=== PATIENT | female | born 1965 | race Caucasian/White ===

== ENCOUNTER → 2018-05-03 11:25 | Outpatient (CLI) | payer OTHER, SELFPAY ==
--- NOTE | 2018-05-03 | DI.MRI.S_ITS ---
PROCEDURE: MR ANKLE LT WO CON INDICATIONS: ACHILLES TENDONITIS OF LEFT LEG TECHNIQUE: Noncontrast sagittal T1 spin echo and T2 fast spin echo with fat saturation, axial proton density fast spin echo and T2 fast spin echo with fat saturation, coronal T1 spin echo and T2 fast spin echo with fat saturation through the ankle/hindfoot. COMPARISON: None. FINDINGS: Image quality: Excellent. Bones and joints: No bone marrow contusions or fractures. No hindfoot coalitions. No osteochondral injuries of the talar dome. No pathologic joint effusions. Synovial/ganglion cyst adjacent to and possibly arising from the talonavicular joint image 14 series 7. This measures 10 x 2 mm on sagittal image 14 series 7. Medial structures: The posterior tibialis, flexor digitorum longus, and flexor hallucis longus tendons are intact. There is mild fluid adjacent to the posterior tibialis tendon suggestive of low-grade tenosynovitis. The posterior tibial neurovascular bundle appears normal within the tarsal tunnel, without extrinsic mass effect. The deep layer (anterior and posterior tibiotalar ligaments) and superficial layer (tibionavicular, tibiospring, and tibiocalcaneal ligaments) of the deltoid ligament appear normal. The spring ligament components (superomedial calcaneonavicular, medioplantar oblique calcaneonavicular, and inferoplantar longitudinal ligaments) are intact. Lateral structures: The anterior talofibular, calcaneofibular, and posterior talofibular ligaments appear intact. More superiorly, the anterior and posterior tibiofibular ligaments appear intact, as is the intermalleolar ligament. The tibiofibular syndesmosis is normal in width at 2 mm or less. There is mild fluid adjacent to the peroneus longus. Longitudinal split tear of the peroneus brevis is seen, for example image 27 series 5. Adjacent bony peroneal tubercle and retrotrochlear prominence are normal in size. The sinus tarsi demonstrates normal fatty signal, without edema, fibrosis, or cyst formation. Visualized sinus tarsi components (cervical ligament, interosseous talocalcaneal ligament, roots of the inferior extensor retinaculum) appear normal. The calcaneonavicular and calcaneocuboid components of the bifurcate ligament appear intact. The dorsal calcaneocuboid ligament appears intact. Anterior structures: The tibialis anterior, extensor hallucis longus, and extensor digitorum longus tendons appear intact. The dorsal talonavicular ligament appears intact. Posterior and plantar structures: Achilles tendon is mildly thickened with minimal internal signal change suggesting chronic low-grade tendinopathy. There is medial band plantar fasciitis with associated plantar calcaneal spur. IMPRESSION: Mild, probably chronic, Achilles tendinopathy. No complete rupture. This involves approximately the distal-most 7 cm of the Achilles tendon Small longitudinal split tear of the peroneus brevis tendon. Mild posterior tibialis and peroneus longus tenosynovitis. Ganglion cyst along the dorsal aspect of the talonavicular joint. Medial band plantar fasciitis Dictated by: Nathanael Kim M.D. on 05/03/2018 at 13:09 Approved by: Nathanael Kim M.D. on 05/03/2018 at 13:27
== END ==
PROVIDERS: Visit Provider Podiatrist
DX: M76.62 Achilles tendinitis, left leg (principal); S96.812A Strain of other specified muscles and tendons at ankle and foot level, left foot, initial encounter; M65.862 Other synovitis and tenosynovitis, left lower leg; M67.472 Ganglion, left ankle and foot; M72.2 Plantar fascial fibromatosis
CPT/HCPCS: 73721

== ENCOUNTER 2018-06-01 12:27 | Day surgery (SDC) | payer OTHER, SELFPAY ==
[2018-05-31 10:36] VITALS: BMI 43.6
[2018-06-01] VITALS (8 sets, daily range): BP systolic 130–164; BP diastolic 46–90; PULSE 60–69; RESP 8–19; TEMP 35.9–36.3; O2SAT 96–100; BMI 43.6
[2018-06-01] MEDS: MIDAZOLAM 2 MG/2 ML VIAL IV (14:40)
[2018-06-01] MEDS: LACTATED RINGERS 1,000 ML 42 ML IV ×2 (14:48→16:54)
--- NOTE | 2018-06-01 14:49 | PM.PREOP ---
Pre-operative Note Interval Note Pre-op Check: Yes History & Physical Reviewed by Physician Changes: No
--- NOTE | 2018-06-01 14:51 | SUR.PREOP ---
Block start time [1440] . Monitoring initiated and maintained throughout procedure. Oxygen and medications given per anesthesiologist instructions. Patient remained stable throughout procedure, no adverse reactions noted. Block end time [1452].
--- NOTE | 2018-06-01 14:52 | PM.OP.1 ---
Operative Date/Time/Diagnoses Date of procedure: 06/01/18 Time of procedure: 14:52 Pre-op diagnosis: Left Achilles tendonitis, tendinosis, heel spur, possible peroneal tear Post-op diagnosis: same Procedure & Clinicians Surgeon: Aline Zepeda Click Yes if Unassisted: Yes Anesthesia Type: General and Peripheral nerve block Operative Notes Closure Type: primary Specimen(s): none sent Implants & Drains: Arthrex Speed Bridge anchor system, Ticron 3-0, Vicryl suture Estimated Blood Loss (mL): 30 Blood products transfused: none Tourniquet time (min): 79 Procedure in detail: In the preoperative holding area the patient was rendered a lower extremity popliteal block on the left lower extremity by the anesthesiologist. Please see his separate report for details on this procedure. The patient was brought to the operating room and on the gurney, the tourniquet was placed about the thigh. After induction of general anesthesia the patient was then transferred to the operative table in a prone position, well-padded and appropriately aligned. The foot and ankle were prepped and draped in the usual aseptic manner. The tourniquet was inflated. After a check of anesthesia, an incision was made on the posterior aspect of the left calf at the gastrocsoleus musculature. The incision was deepened through subcutaneous tissues being careful to identify and retract all vital neural and vascular structures. All bleeders were cauterized and ligated as necessary. The paratenon was gently opened and reflected and the gastrocnemius was noted. Measuring carefully an inverted T-type slide lengthening was performed. With careful separation for the underlying soleus musculature. This allowed better amount of dorsiflexion. The ends of the lengthened gastrocnemius were then repaired with 2-0 vicryl. The area was irrigated with copious amounts of normal sterile saline. The paratenon was repaired using Vicryl and subcutaneous closure with Vicryl as well. Next, an incision was made over the distal calcaneus at the insertion point of the Achilles tendon. Incision was deepened through subcutaneous tissues being careful to identify and retract all vital neural and vascular structures. All bleeders were cauterized and ligated as necessary. The insertion point of the Achilles tendon was reflected laterally and medially to note the underlying enlarged spur. The tendon had also become thickened in this location and it was carefully removed from the underlying spur. Parts of the thickened tendon that were redundant, scarred were also gently and carefully removed. An osteotome was used to chamfer away the posterior spurring of the calcaneus. This was then gently smoothed with a rasp. The area was irrigated with copious amounts of normal sterile saline. Following the technique of the Arthrex SpeedBridge, drill holes were placed proximally on the posterior aspect of the calcaneus medially and laterally. This was then tapped and each anchor was inserted. Once appropriately seated the FiberWire attached to the anchor was brought up through the Achilles tendon at the appropriate location. Next, distally on the calcaneus another set of 2 holes were drilled in the same manner and tapped. Following the speed bridge protocol, under appropriate tension threading each of the 2 sides of the more proximal anchors' suture, this was then placed in each of the holes. Each of these 2 anchors were then seated appropriately and was under good tension. Excess fiber tape was trimmed. 2-0 Vicryl was used to reinforce and repair the remainder of the Achilles tendon and range of motion was available and strong. The area was irrigated once more with normal sterile saline and the tourniquet was deflated. A prompt hyperemic response was seen to the foot and ankle. Tendon capsule was then repaired and subcutaneous closure was performed with Vicryl. Skin was closed with nylon to both incisions It was then determined that I had easy access to the 3rd area of her surgery so the decision was made not to convert her to supine at this time. After esmarch exsanguination of the left lower extremity, the tourniquet was inflated to the thigh. Following the location of her pain preoperatively marked, an incision was made in a curvilinear fashion over the lateral gutter of the left ankle. The incision was deepened through subcutaneous tissues being careful to identify and retract all vital neural and vascular structures. All bleeders were cauterized and ligated as necessary. The peroneal tendon sheath was identified and once divided and entered, a significant amount of fluid was removed which was clear and did not appear to tainted in color. The peroneus brevis was noted to have a tear with about 1/3 in 1 area and the other 2/3 in the other section. There was no spurring noted and the tendon otherwise appeared healthy. The peroneus longus did not appear to have show any tearing. The length of the tear was about 1/2 cm and did not appear to sublux across the fibula. Using sharp debridement the edges of the tear that had appeared to be redundant were excised and a curette was used to also rough the area up just a little bit to encourage healing. The area was irrigated with copious amounts of normal sterile saline. Tycron was used in a running buried technique and coapted the 2 edges of the tear nicely. This was tested and moved and glided well into the gutter. The peroneal tendon sheath was then repaired with Vicryl and subcutaneous closure as well with Vicryl. Tourniquet was deflated, a prompt hyperemic response was seen to the foot. The skin was closed with nylon. She was placed in a sterile lightly compressive dressing. She was then also placed in her postoperative boot. She was transferred to the PACU with vital signs stable and vascular status intact. Complications: none Condition: stable Disposition: PACU Plan for aftercare: Following a period of postoperative monitoring, the patient will be discharged home on written and oral postoperative instructions including keeping the dressing dry and intact, avoiding significant ambulation to the foot. Icing and elevating the foot when seated at home. DVT prevention techniques have been reviewed, and she is to start her Lovenox daily injections tomorrow morning. Her 1st postoperative visit will be a dressing change and approximately week 3 if her sutures have not yet been removed will be removed at that time. She will likely be able to begin partial weight-bearing around the 3rd to 4th week and consider physical therapy around the 4th week.
[2018-06-01] MEDS: CEFAZOLIN 2 GM/100 ML FROZ.PIGGY IV (14:57)
--- NOTE | 2018-06-01 15:32 | SUR.OPER ---
Prone on padded OR bed, head in foam head support, gel chest rolls, gel pad under knees, pillow under lower legs, toes free of pressure, arms secured on padded arm boards at <90 degrees abduction. Safety belt at waist, tape over non-operative leg at calf (tape over blanket)
--- NOTE | 2018-06-01 15:36 | SUR.OPER ---
Supine on padded OR bed, head on pillow, arms secured on padded arm boards at <90 degrees abduction, legs uncrossed, safety belt at thigh, tape over blanket over right lower leg.
[2018-06-01] MEDS: BUPIVACAINE 0.5% (PF) VIAL 30 ML INJ (15:51)
--- NOTE | 2018-06-01 17:59 | SUR.PHASEI ---
Dr Zepeda has been here x2 and checked on patient/spoke to her briefly. Denies foot pain, ice chips given to ease sore throat. Stable, very drowsy. Skin warm and dry, resp even and regular.
--- NOTE | 2018-06-01 18:06 | SUR.PHASEI ---
Stable, Declines water, Encouraged deep breathing. Transferring to phase 2
[2018-06-01] MEDS: HYDROCODONE/ACET 5/325 TABLET 1 TAB PO (18:22)
--- NOTE | 2018-06-01 18:52 | SUR.PHASEII ---
182 Desires to go home. Drowsy. Incontinent x1, skin cleansed during assisting patient with dressing (by staff and spouse). Denies nausea, Pain level at 3/10. Will medicate with 2nd pill from own supply. 184 To car in W/C, assisted into back seat of car. No questions/concerns. Dressing remains CDI throughout, Boot adjusted to place heal in proper position - patient states that it was more comfortable.
== END 2018-06-01 18:42 | disposition home or self-care (01) ==
PROVIDERS: Visit Provider Podiatrist
PROC: (CPT 27650; principal; 2018-06-01 14:15)
DX: M76.62 Achilles tendinitis, left leg (principal); M77.32 Calcaneal spur, left foot; G57.92 Unspecified mononeuropathy of left lower limb; S86.312A Strain of muscle(s) and tendon(s) of peroneal muscle group at lower leg level, left leg, initial encounter; G89.18 Other acute postprocedural pain; F17.210 Nicotine dependence, cigarettes, uncomplicated; E66.01 Morbid (severe) obesity due to excess calories; Z87.891 Personal history of nicotine dependence
CPT/HCPCS: 27654; 28119; 27687; 27675; 64445; 64450; J0690; J1100; J2250; J2405; J2704; J3010

== ENCOUNTER 2019-05-27 12:54 | Emergency (ER) | payer OTHER, SELFPAY ==
[2019-05-27 13:19] VITALS: BP 157/97; PULSE 70; RESP 13; TEMP 36.7; O2SAT 100
--- NOTE | 2019-05-27 13:20 | DI.RAD.S_ITS ---
PROCEDURE: XR FOOT LT MIN 3V INDICATIONS: pain and swelling TECHNIQUE: 3 views of the foot were acquired. COMPARISON: [facility], CR, XR ANKLE LT MIN 3V, 05/27/2019, 13:31. [facility], MR, MR ANKLE LT WO CON, 05/03/2018, 11:49. FINDINGS: Bones: There is partial visualization of the avulsion fracture of the distal fibula, which is better seen on the accompanying ankle films. No additional fractures are detected. Age-appropriate bony degenerative changes are seen. Plantar and Achilles calcaneal spurs are seen. No suspicious lytic or blastic lesions are seen. Soft tissues: Ankle soft tissue swelling is seen. IMPRESSION: Partial visualization of the distal fibular avulsion fracture. Dictated by: Kobe Wells M.D. on 05/27/2019 at 13:48 Approved by: Kobe Wells M.D. on 05/27/2019 at 13:49
--- NOTE | 2019-05-27 13:20 | DI.RAD.S_ITS ---
PROCEDURE: XR ANKLE LT MIN 3V INDICATIONS: pain and swelling TECHNIQUE: 3 views of the ankle were acquired. COMPARISON: [facility], CR, XR FOOT LT MIN 3V, 05/27/2019, 13:31. [facility], MR, MR ANKLE LT WO CON, 05/03/2018, 11:49. FINDINGS: Bones: There is an avulsion fracture seen on the lateral aspect of the distal fibula, with mild comminution. No additional fractures are detected. The ankle mortise does not appear widened. The syndesmosis does not appear widened. The talar dome demonstrates no kika abnormality. Age-appropriate bony degenerative changes are seen. Plantar and Achilles calcaneal spurs are seen. Soft tissues: Soft tissue swelling is seen. IMPRESSION: Avulsion fracture seen along the lateral aspect of the distal fibula. Dictated by: Kobe Wells M.D. on 05/27/2019 at 13:46 Approved by: Kobe Wells M.D. on 05/27/2019 at 13:48
--- NOTE | 2019-05-27 13:28 | ED.LOWEXIN ---
HPI - Extremity Injury (Lower) General Chief Complaint: Extremity Injury, Lower Stated Complaint: Fell out of back of truck, left ankle pain Time Seen by Provider: 05/27/19 13:24 Source: patient Mode of arrival: other Limitations: no limitations History of Present Illness HPI Narrative: Patient is a 53-year-old female who presents with left ankle and foot pain. She was putting up [place] lights with the [employer] when she jumped off the tailgate of a truck she felt her foot bent backwards. She easily had sharp shooting pain as she is worried because she had Achilles tendon repair of 1 year ago in his still going to physical therapy. She is able to flex and extend her foot without any difficulty. No knee pain. Tender mostly around the ankle and midfoot. MD complaint: ankle injury and foot injury Related Data Home Medications Medication Instructions Recorded Confirmed gabapentin 800 mg PO DAILY 05/31/18 06/01/18 lidocaine 1 applic TOPICAL TID 05/31/18 06/01/18 ropinirole 0.5 mg PO BEDTIME 05/31/18 06/01/18 Celebrex 06/01/18 Previous Rx's Medication Instructions Recorded oxycodone-acetaminophen [Percocet] 1 tab PO Q6H PRN #10 tab 05/27/19 Allergies Allergy/AdvReac Type Severity Reaction Status Date / Time phenobarbital [PHENOBARBITAL] Allergy Mild rash Unverified 05/31/18 10:39 Review of Systems Review of Systems Narrative: GENERAL: Denies chills,fever HEENT: Denies throat pain RESPIRATORY: Denies dyspnea, cough, wheezing CARDIOVASCULAR: Denies chest pain, palpitations GASTROINTESTINAL: Denies nausea, vomiting MUSCULOSKELETAL: See HPI SKIN: No rash, no laceration, no pruritus NEUROLOGIC: Denies weakness, dizziness, headache, numbness 8 point review of systems is negative except for those stated above and HPI Patient History Medical History Neuropathy (Acute) Social History household members: spouse Exam Initial Vital Signs Initial Vital Signs: Vital Signs Temperature 98.1 F 05/27/19 13:19 Pulse Rate 70 05/27/19 13:19 Respiratory Rate 13 05/27/19 13:19 Blood Pressure 157/97 H 05/27/19 13:19 Pulse Oximetry 100 05/27/19 13:19 GENERAL: Overweight well-appearing female CARDIOVASCULAR: peripheral pulses in tact, cap refill <2 sec RESPIRATORY: No respiratory distress, speaks in full sentences without difficulty EXTREMITIES: Normal range of motion, no clubbing or edema. Neurovascularly intact left lower extremity able to flex and extend foot distal pedal pulse intact Achilles tendon appears and feels intact is tender over lateral malleoli and foot NEUROLOGICAL: Cranial nerves II through XII grossly intact. Normal gait and speech. SKIN: Warm, dry, no petechiae, no rashes or lesions. Procedures Orthopedic Splinting/Casting Injury #1: Side: left Lower Extremity Injury Location: ankle Lower Extremity Immobilizer: boot orthosis Other Orthopedic Equipment: crutches Post splinting neuro exam: intact Post splinting vascular exam: intact Placed by: Nursing Course Orders Ordered: ED Orders 05/27/19 13:20 XR ankle LT min 3V Stat XR foot LT min 3V Stat Discontinued Medications Ibuprofen (Advil) 800 mg PO NOW ONE Stop: 05/27/19 13:32 Last Admin: 05/27/19 13:36 Dose: 800 mg Documented by: ARRINGTO Vital Signs Vital signs: Vital Signs - 8 hr 05/27/19 13:19 05/27/19 14:39 Temperature 98.1 F Pulse Rate 70 63 Respiratory Rate 13 18 Blood Pressure 157/97 H Blood Pressure [Left Arm] 142/74 H Pulse Oximetry 100 100 MDM - Extremity Injury (Lower) Imaging Data foot left: Radiologist's impression: PROCEDURE: XR FOOT LT MIN 3V INDICATIONS: pain and swelling TECHNIQUE: 3 views of the foot were acquired. COMPARISON: [facility], CR, XR ANKLE LT MIN 3V, 05/27/2019, 13:31. [facility], MR, MR ANKLE LT WO CON, 05/03/2018, 11:49. FINDINGS: Bones: There is partial visualization of the avulsion fracture of the distal fibula, which is better seen on the accompanying ankle films. No additional fractures are detected. Age-appropriate bony degenerative changes are seen. Plantar and Achilles calcaneal spurs are seen. No suspicious lytic or blastic lesions are seen. Soft tissues: Ankle soft tissue swelling is seen. IMPRESSION: Partial visualization of the distal fibular avulsion fracture. Dictated by: Kobe Wells M.D. on 05/27/2019 at 13:48 ankle left: Radiologist's impression: PROCEDURE: XR ANKLE LT MIN 3V INDICATIONS: pain and swelling TECHNIQUE: 3 views of the ankle were acquired. COMPARISON: [facility], CR, XR FOOT LT MIN 3V, 05/27/2019, 13:31. [facility], MR, MR ANKLE LT WO CON, 05/03/2018, 11:49. FINDINGS: Bones: There is an avulsion fracture seen on the lateral aspect of the distal fibula, with mild comminution. No additional fractures are detected. The ankle mortise does not appear widened. The syndesmosis does not appear widened. The talar dome demonstrates no kika abnormality. Age-appropriate bony degenerative changes are seen. Plantar and Achilles calcaneal spurs are seen. Soft tissues: Soft tissue swelling is seen. IMPRESSION: Avulsion fracture seen along the lateral aspect of the distal fibula. Dictated by: Kobe Wells M.D. on 05/27/2019 at 13:46 Discharge Plan Departure Patient Disposition: Home Clinical Impression: Ankle fracture, left Qualifiers: Encounter type: initial encounter Fracture type: closed Qualified Code(s): S82.892A - Other fracture of left lower leg, initial encounter for closed fracture Discharge Date/Time: 05/27/19 15:54 Instructions: DI for Ankle Fracture Activity Restrictions/Additional Instructions: *You have been diagnosed with left fibular fracture *What to do: Wear walking do at all times use crutches as needed, ice, elevate *Continue to take medications as directed Percocet 1-2 tablets every 6 hours if needed for severe pain Ibuprofen 800 mg every 8 hours with food if needed for [id number] pain *Follow up with your primary care provider in 2-3 days, call Orthopedics Wednesday to schedule follow-up appointment *Return to ER if you should have increased pain, or any new, worsening or concerning symptoms CONTROLLED SUBSTANCE DISCHARGE (Narcotoic/benzodiazepine/Flexeril/Phenergan) 1. You have been prescribed narcotic medications, it does have acetaminophen/Tylenol/paracetamol in it so do not take extra Tylenol or Tylenol containing products 2. Please understand that we cannot provide further refills of narcotics, benzodiazepines or controlled substances through the ED and her pain management will need to be through your provider. 3. While on these medications you cannot drive or operate heavy machinery. 4. You cannot sign legal documents or perform any duties such as this. 5. As long as you're taking opiate pain medications he should also be taking a stool softener such as Colace, Dulcolax, MiraLAX or prune juice, to help avoid constipation. Prescriptions: New oxycodone-acetaminophen [Percocet] 5-325 mg tablet 1 tab PO Q6H PRN (Reason: pain) Qty: 10 RF: 0 No Action ropinirole 0.25 mg Tablet 0.5 mg PO BEDTIME RF: 0 gabapentin 100 mg Capsule 800 mg PO DAILY RF: 0 lidocaine 5 % Ointment 1 applic TOPICAL TID RF: 0 Celebrex RF: 0 Referrals: [facility] [Provider Group] [facility] [Provider Group] Syl Donohue MD [Primary Care Provider] -
[2019-05-27] MEDS: IBUPROFEN 400 MG TABLET 800 MG PO (13:36)
[2019-05-27 14:39] VITALS: BP 142/74; PULSE 63; RESP 18; O2SAT 100
--- NOTE | 2019-05-27 15:26 | PC.NURSE ---
pt declines crutches, she has her scooter from her ankle surgery
== END 2019-05-27 15:54 | disposition home or self-care (01) ==
PROVIDERS: Emergency Provider Emergency Medicine; PCP Family Medicine
DX: S82.892A Other fracture of left lower leg, initial encounter for closed fracture (principal); Y93.39 Activity, other involving climbing, rappelling and jumping off; Y99.0 Civilian activity done for income or pay
CPT/HCPCS: 73610; 73630; 99283

== ENCOUNTER 2020-04-22 20:53 | Emergency (ER) | payer OTHER, SELFPAY ==
[2020-04-22 21:00] VITALS: BP 157/75; PULSE 101; RESP 18; TEMP 37.2; O2SAT 98; BMI 45.3
--- NOTE | 2020-04-22 21:02 | ED.EYEPROB ---
HPI - Eye Problem General Chief complaint: Abdominal Pain Stated complaint: Abd pain Time Seen by Provider: 04/22/20 21:00 Source: patient Mode of arrival: Ambulatory Limitations: no limitations History of Present Illness HPI Narrative: The patient describes epigastric abdominal pain that started this morning. She has no nausea vomiting. The pain radiates to her back. She also has pain tracking in the substernal area. She is status post cholecystectomy. She has no history of GERD or PUD. She has had minor similar pains previously, nothing as a during his what she has experienced today. She has had no urinary complaints, no diarrhea, no lower abdominal complaints. She has no headache, fever, cough or dyspnea. She has been around no one with similar complaints. Related Data Home Medications Medication Instructions Recorded Confirmed gabapentin 800 mg PO DAILY 05/31/18 06/01/18 lidocaine 1 applic TOPICAL TID 05/31/18 06/01/18 ropinirole 0.5 mg PO BEDTIME 05/31/18 06/01/18 Celebrex 06/01/18 Previous Rx's Medication Instructions Recorded oxycodone-acetaminophen [Percocet] 1 tab PO Q6H PRN #10 tab 05/27/19 pantoprazole [Protonix] 40 mg PO DAILY 28 Days tab 04/23/20 Allergies Allergy/AdvReac Type Severity Reaction Status Date / Time phenobarbital [PHENOBARBITAL] Allergy Mild rash Unverified 05/31/18 10:39 Review of Systems Constitutional Constitutional: Denies chills, Denies fever(s), Denies headache(s), Denies lethargy and Denies weakness ENT Ears, Nose, Mouth, and Throat: Denies dizziness, Denies headache(s) and Denies sore throat Cardiovascular Cardiovascular: Denies chest pain, Denies syncope, Denies rapid heart rate and Denies dyspnea Respiratory Respiratory: Denies cough, Denies dyspnea and Denies wheezing Gastrointestinal Gastrointestinal: Reports as per HPI Genitourinary Genitourinary: Denies dysuria Genitourinary: Denies dysuria Musculoskeletal Comments: Back pain is noted HPI. No lower extremity edema or calf tenderness. Integumentary/Breasts Skin/Breast: Denies rash Neurologic Neurologic: Denies confusion, Denies dizziness, Denies syncope, Denies headache(s) and Denies weakness Psychiatric Psychiatric: Denies anxiety, Denies confusion and Denies depression Allergic/Immunologic Allergic/Immunologic: Denies wheezing Patient History Medical History (Updated 04/23/20 @ 00:18 by Wellington Thompson MD) Neuropathy (Acute) Restless leg syndrome (Acute) Surgical History (Updated 04/22/20 @ 21:57 by Wellington Thompson MD) Status post cholecystectomy (Acute) Social History household members: spouse Smoking Status: Never smoker Exam Initial Vital Signs Initial Vital Signs: Vital Signs Temperature 98.9 F 04/22/20 21:00 Pulse Rate 101 H 04/22/20 21:00 Respiratory Rate 18 04/22/20 21:00 Blood Pressure 157/75 H 04/22/20 21:00 Pulse Oximetry 98 04/22/20 21:00 Const General: cooperative and well developed Nutritional Appearance: well nourished [facility] Head: normocephalic and atraumatic Eyes Conjunctivae: other (No icterus) Chest Other: No substernal tenderness Resp Auscultation: clear to auscultation bilaterally Cardio Rate: regular rate Rhythm: regular rhythm Heart Sounds: S1 normal, S2 normal and no murmurs GI Other: Moderate epigastric tenderness with no guarding and no rebound. No distension. Normal bowel sounds. No masses. Obese. Skin General: no rashes or lesions noted Neuro General: patient oriented x3 and no focal motor deficits Extrem General: no pedal edema and no calf tenderness Psych Mental Status: mental status grossly normal Speech and Movement: speech and movement normal Course Course Course Narrative: Her pain did improve with the GI cocktail on Protonix. Her pain did not resolve. She further improved when given a dose of morphine prior to discharge. She will be discharged on Protonix for stomach, I suggested Tylenol only for pain. She is advised follow-up with her doctor the next 1-2 weeks. Orders Ordered: ED Orders 04/22/20 21:03 EKG-12 Lead Stat 04/22/20 21:09 Complete Blood Count AUTO DIFF Stat Comprehensive Metabolic Panel Stat Lipase Stat Partial Thromboplastin Time Stat Prothrombin Time INR Stat Discontinued Medications Al Hydrox/Mg Hydrox/Simethicone 20 ml/ Lidocaine HCl 15 ml 0 ml PO NOW ONE Stop: 04/22/20 21:55 Last Admin: 04/22/20 22:01 Dose: 20 ml Documented by: LATRICE Gentamicin Sulfate (Garamycin 0.3% Ophth Prepack) 1 bottle MISC SEEINSTR ONE Stop: 04/22/20 21:03 Last Admin: 04/22/20 21:11 Dose: Not Given Documented by: LATRICE Morphine Sulfate (Morphine) 4 mg IV NOW ONE Stop: 04/22/20 23:35 Last Admin: 04/22/20 23:43 Dose: 4 mg Documented by: IRMA Pantoprazole Sodium (Protonix) 40 mg IV NOW ONE Stop: 04/22/20 21:55 Last Admin: 04/22/20 22:01 Dose: 40 mg Documented by: LATRICE Vital Signs Vital signs: Vital Signs - 8 hr 04/22/20 21:00 04/22/20 21:54 04/22/20 22:00 Temperature 98.9 F Pulse Rate 101 H 90 86 Respiratory Rate 18 24 15 Blood Pressure 157/75 H 136/60 Pulse Oximetry 98 87 L 96 04/22/20 22:30 04/22/20 23:00 04/22/20 23:30 Temperature Pulse Rate 89 90 89 Respiratory Rate 20 18 23 Blood Pressure 131/60 125/58 L 138/63 Pulse Oximetry 95 95 95 04/23/20 00:00 Temperature Pulse Rate 84 Respiratory Rate 16 Blood Pressure 137/65 Pulse Oximetry 94 MDM - Eye Problem Lab Data Result diagrams: 04/22/20 21:09 04/22/20 21:09 Labs: Lab Results 04/22/20 04/22/20 04/22/20 Range/Units 21:09 21:09 21:09 WBC 11.3 H (4.5-11.0) X10^3/uL RBC 4.85 (4.0-5.2) X10^6/uL Hgb 13.5 (12.0-16.0) g/dL Hct 41.1 (36-46) % MCV 84.8 (80-100) fL MCH 27.8 (26-34) PG MCHC 32.8 (30-36) % RDW 13.1 (11.6-14.8) % Plt Count 301 (150-400) X10^3/uL Neut % (Auto) 70.1 (50-75) % Lymph % (Auto) 20.2 L (25-40) % [place] % (Auto) 8.0 (3-14) % Eos % (Auto) 1.0 L (2-4) % Baso % (Auto) 0.7 (0-2) % Neut # (Auto) 7900 H (5723-3935) /uL Lymph # (Auto) 2300 (3377-8332) /uL [place] # (Auto) 900 (0-900) /uL Eos # (Auto) 100 (0-450) /uL Baso # (Auto) 100 (0-100) /uL PT 12.1 (10.1-12.7) SECONDS INR 1.1 (0.9-1.3) APTT 33 (26.4-36.2) SECONDS Sodium 138 (137-145) mmol/L Potassium 4.0 (3.4-5.1) mmol/L Chloride 101 (98-107) mmol/L Carbon Dioxide 32 (22-32) mmol/L BUN 14 (7-17) mg/dL Creatinine 0.70 (0.52-1.04) mg/dL Estimated GFR > 60.0 (>60) mL/min BUN/Creatinine Ratio 20.0 (6-22) Glucose 111 H (70-100) mg/dL Calcium 9.2 (8.4-10.2) mg/dL Total Bilirubin 1.3 (0.2-1.3) mg/dL AST 42 H (14-36) IU/L ALT 48 H (<35) IU/L Alkaline Phosphatase 85 (38-126) U/L Total Protein 7.9 (6.3-8.2) g/dL Albumin 4.4 (3.5-5.0) g/dL Globulin 3.5 (1.7-4.1) g/dL Albumin/Globulin Ratio 1.3 (1.0-2.8) Lipase 79 (23-300) U/L ECG Data Attestation: I personally reviewed and interpreted this ECG as follows: (Normal sinus rhythm rate 85 beats per minute. Normal intervals. No ectopy. No acute ST T wave changes.) Discharge Plan Departure Patient Disposition: Home Clinical Impression: Abdominal pain, epigastric Instructions: DI for Epigastric Pain Activity Restrictions/Additional Instructions: Protonix 1 tablet daily as prescribed. I would recommend a bland diet. Be sure you are drinking plenty of water and remain well hydrated. Tylenol 2 tablets every 4 hours as needed for pain issues. Recheck with your doctor in about 10 days. Return the ER for increasing pain or fever. Prescriptions: New pantoprazole [Protonix] 40 mg tablet,delayed release (DR/EC) 40 mg PO DAILY 28 Days RF: 0 No Action oxycodone-acetaminophen [Percocet] 5-325 mg tablet 1 tab PO Q6H PRN (Reason: pain) Qty: 10 RF: 0 ropinirole 0.25 mg Tablet 0.5 mg PO BEDTIME RF: 0 gabapentin 100 mg Capsule 800 mg PO DAILY RF: 0 lidocaine 5 % Ointment 1 applic TOPICAL TID RF: 0 Celebrex RF: 0 Referrals: Syl Donohue MD [Primary Care Provider] - Stand Alone Forms: Work Release Note
[2020-04-22 21:19] LABS: Add Manual Diff / Slide Review NO; Basophils Absolute Auto 100 /uL (0-100); Basophils Percent Auto 0.7 % (0-2); Eosinophils Absolute Auto 100 /uL (0-450); Hematocrit 41.1 % (36-46); Hemoglobin 13.5 g/dL (12.0-16.0); Lymphocytes Absolute Auto 2300 /uL (1100-4500); Lymphocytes Percent Auto 20.2 % (25-40); Mean Corpuscular HGB Conc 32.8 % (30-36); Mean Corpuscular Hemoglobin 27.8 PG (26-34); Mean Corpuscular Volume 84.8 fL (80-100); Monocytes Absolute Auto 900 /uL (0-900); Neutrophils Absolute Auto 7900 /uL (1500-7000); Neutrophils Percent Auto 70.1 % (50-75); Platelet Count 301 X10^3/uL (150-400); Red Blood Cell Count 4.85 X10^6/uL (4.0-5.2); Red Cell Distribution Width 13.1 % (11.6-14.8); White Blood Cell Count 11.3 X10^3/uL (4.5-11.0)
[2020-04-22 21:27] LABS: INR 1.1 (0.9-1.3); Prothrombin Time 12.1 SECONDS (10.1-12.7)
[2020-04-22 21:30] LABS: PTT Partial Thromboplastin Tim 33 SECONDS (26.4-36.2)
[2020-04-22 21:32] LABS: Alanine Aminotransferase 48 IU/L (<35); Albumin 4.4 g/dL (3.5-5.0); Albumin Globulin Ratio 1.3 (1.0-2.8); Alkaline Phosphatase 85 U/L (38-126); Aspartate Aminotransferase 42 IU/L (14-36); Bilirubin Total 1.3 mg/dL (0.2-1.3); Blood Urea Nitrogen 14 mg/dL (7-17); Calcium 9.2 mg/dL (8.4-10.2); Carbon Dioxide 32 mmol/L (22-32); Chloride 101 mmol/L (98-107); Estimated Glomerular Filt Rate > 60.0 mL/min (>60); Globulin 3.5 g/dL (1.7-4.1); Glucose 111 mg/dL (70-100); HEMOLYSIS 20 (0-50); Lipase 79 U/L (23-300); Sodium 138 mmol/L (137-145); Total Protein 7.9 g/dL (6.3-8.2)
[2020-04-22 21:54] VITALS: PULSE 90; RESP 24; O2SAT 87
[2020-04-22 22:00] VITALS: BP 136/60; PULSE 86; RESP 15; O2SAT 96
[2020-04-22] MEDS: MAG HYDROX/ALUMINUM/SIMETH SUS 20 ML, LIDOCAINE VISCOUS 2% 15 ML PO (22:01)
[2020-04-22] MEDS: PANTOPRAZOLE 40 MG VIAL IV (22:01)
[2020-04-22 22:30] VITALS: BP 131/60; PULSE 89; RESP 20; O2SAT 95
--- NOTE | 2020-04-22 22:37 | PC.NURSE ---
Patient appears teary states abdominal pain not improved by Maalox/Lidocaine and Protonix. Pointing to LUQ as point of pain and states tender upon palpation. Provider notified and aware.
[2020-04-22 23:00] VITALS: BP 125/58; PULSE 90; RESP 18; O2SAT 95
[2020-04-22 23:30] VITALS: BP 138/63; PULSE 89; RESP 23; O2SAT 95
[2020-04-22] MEDS: MORPHINE 4 MG/ML INJ IV (23:43)
[2020-04-23] VITALS: BP 137/65; PULSE 84; RESP 16; O2SAT 94
== END 2020-04-23 00:32 | disposition home or self-care (01) ==
PROVIDERS: Emergency Provider Emergency Medicine; PCP Family Medicine
DX: R10.13 Epigastric pain (principal)
CPT/HCPCS: 36415; 80053; 83690; 85025; 85610; 85730; 93005; 93010; 96374; 96375; 99284; C9113; J2270

== ENCOUNTER → 2020-06-03 14:34 | Outpatient (CLI) | payer OTHER, SELFPAY ==
[2020-06-03 16:51] LABS: COVID19 -Nasal RAPID Negative (Negative)
== END ==
PROVIDERS: PCP Family Medicine; Visit Provider Physician Assistant
DX: Z11.59 Encounter for screening for other viral diseases (principal)
CPT/HCPCS: 87635

== ENCOUNTER 2020-06-05 11:27 | Day surgery (SDC) | payer OTHER, SELFPAY ==
[2020-06-05] VITALS (8 sets, daily range): BP systolic 107–135; BP diastolic 69–74; PULSE 64–75; RESP 11–18; TEMP 36.3–36.4; O2SAT 93–100; BMI 47.2
--- NOTE | 2020-06-05 | PATH_ITS ---
[facility] Accession Number: [id number] . 01 Material submitted: . gastrointestinal site - GASTRIC BODY AND ANTRUM BIOPSY . 01 Clinical history: . EGD W/BX . 02 Diagnosis: Gastric Body and Antrum, Biopsies: Gastric antral and body mucosa with mild chronic inflammation. Negative for Helicobacter organisms by immunohistochemistry. Negative for intestinal metaplasia. Negative for dysplasia or malignancy. [facility] 06/10/2020 1239 Local . 02 Electronically signed: . Bronson Valenzuela MD, PhD, Pathologist NPI- [id number] . 01 Gross description: . GASTRIC BODY AND ANTRUM BIOPSY: Received in formalin are 5 fragment(s) of babin, soft tissue measuring 0.5 x 0.2 x 0.1 cm to 0.1 x 0.1 x 0.1 cm submitted entirely in 1 cassette(s) /QBJ 06/06/2020 0931 Local . 02 Microscopic: . An immunohistochemical stain was performed to evaluate for Helicobacter organisms and is negative. The control stain showed appropriate reactivity. . * This test was developed and its performance characteristics determined by [facility]. It has not been cleared or approved by the U.S. Food and Drug Administration. The FDA has determined that such clearance or approval is not necessary. This test is used for clinical purposes. It should not be regarded as investigational or for research. . 02 Pathologist provided ICD-10: K29.70 . 02 CPT . 772855, C62543 Performed at: 01 [facility] [address] [place] [id number] MD Rod Kimbrough MD Phone: [phone] Performed at: 02 [facility] [address] [address] [place], [place] [id number] MD Hansa Lilly MD Phone: [phone]
--- NOTE | 2020-06-05 08:02 | P.HP_ITS ---
History of Present Illness History of Present Illness Date Patient Seen: 06/05/20 Chief complaint: EGD W/BX Narrative: 54-year-old female seen during on tele health visit on 05/21/2020 due to epigastric pain and GERD symptoms. Please refer to that note for further details. On questioning today the patient states that her abdominal pain is now improved Patient History Medical History (Updated 05/08/20 @ 00:00 by ) Neuropathy Restless leg syndrome Surgical History (Updated 04/22/20 @ 21:57 by Wellington Thompson MD) Status post cholecystectomy Family & Social History Social History: household members spouse Tobacco & Substance use: Smoking Status Never smoker alcohol intake frequency 0-2 drinks per day Substance Use Type does not use Meds Home Medications and Allergies Home Medications Medication Instructions Recorded Confirmed Type lidocaine 1 applic TOPICAL TID 05/31/18 06/05/20 History ropinirole 0.5 mg PO BEDTIME 05/31/18 06/05/20 History duloxetine [Cymbalta] 60 mg PO DAILY 06/05/20 06/05/20 History gabapentin enacarbil [Horizant] 600 mg PO DAILY 06/05/20 06/05/20 History pantoprazole [Protonix] 40 mg PO DAILY 06/05/20 06/05/20 History Allergies Allergy/AdvReac Type Severity Reaction Status Date / Time egg Allergy Severe Vomiting Verified 06/05/20 11:44 phenobarbital [PHENOBARBITAL] Allergy Mild rash Verified 06/05/20 11:44 Exam Narrative Exam Narrative: General: Patient is obese, not in apparent distress Cardiovascular: Regular rate and rhythm, no murmurs, rubs, or gallops; no evidence of edema; no palpable abdominal aortic aneurysm Gastrointestinal: Normoactive bowel sounds, soft, nontender, nondistended, no rebound tenderness, no hepatosplenomegaly, no evidence of hernia Assessment & Plan Assessment & Plan narrative: 54-year-old female with history of GERD and epigastric pain who is here for further evaluation by means of an upper endoscopy Regarding the procedure(s), the risks and potential complications, benefits, and alternatives (including not doing the procedure) were discussed with the patie nt. The risks include but are not limited to bleeding, splenic injury, infection, perforation which may require surgical intervention, missed lesions, and adverse reactions to sedative medicines. After a question and answer period, the patient agreed to proceed with the procedure(s) and gives informed consent.
--- NOTE | 2020-06-05 08:04 | PM.HP.1 ---
History of Present Illness History of Present Illness Chief complaint: EGD W/BX Narrative: 54-year-old female seen during on tele health visit on 05/21/2020 due to epigastric pain and GERD symptoms. Please refer to that note for further details Patient History Medical History (Updated 05/08/20 @ 00:00 by ) Neuropathy Restless leg syndrome Surgical History (Updated 04/22/20 @ 21:57 by Wellington Thompson MD) Status post cholecystectomy Family & Social History Social History: household members spouse Tobacco & Substance use: Smoking Status Never smoker alcohol intake frequency 0-2 drinks per day Substance Use Type does not use Meds Home Medications and Allergies Home Medications Medication Instructions Recorded Confirmed Type gabapentin 800 mg PO DAILY 05/31/18 06/01/18 History lidocaine 1 applic TOPICAL TID 05/31/18 06/01/18 History ropinirole 0.5 mg PO BEDTIME 05/31/18 06/01/18 History Celebrex 06/01/18 History oxycodone-acetaminophen [Percocet] 1 tab PO Q6H PRN #10 tab 05/27/19 Rx Allergies Allergy/AdvReac Type Severity Reaction Status Date / Time phenobarbital [PHENOBARBITAL] Allergy Mild rash Unverified 05/31/18 10:39
[2020-06-05] MEDS: SODIUM CHLORIDE 0.9% 1,000 ML 70 ML IV (11:59)
[2020-06-05] MEDS: LIDOCAINE 4% SOLN 50 ML 20 ML TOP (12:34)
--- NOTE | 2020-06-05 12:36 | P.OP.ENDO_ITS ---
Operative Date/Time/Diagnoses Date of procedure: 06/05/20 Procedure Notes Procedure in detail: Surgeon: Farhan Vera MD Procedure: Esophagogastroduodenoscopy with biopsy Preoperative diagnosis: Epigastric pain, GERD Postoperative diagnosis: Normal EGD status post gastric biopsies for H pylori Medications: Conscious sedation using 6 mg IV of Midazolam and 100 mcg IV of Fentanyl Preanesthesia Assessment An H and P was performed/updated and the Px?s ASA class is 2. The procedure was discussed in detail with the patient. The potential risks and complications including infection, bleeding, missed lesions, perforation, need for surgery in case of perforation, prolonged hospital stay, and were explained. A brief question and answer period was allotted and once all questions were answered, informed consent was obtained. The patient was brought back to the procedure room and placed on standard monitoring. The patient?s vital signs were monitored continuously throughout the entire procedure. Prior to starting, a timeout was performed to confirm the patient?s identity, allergies, medications, and procedure. Procedure in detail The patient was placed in left lateral decubitus position and a bite block was inserted. The tip of the upper endoscope was placed into the mouth and advanced without difficulty under direct visualization into the esophagus. Esophagus: The visualized esophagus appeared normal with a regular Z-line at 39 cm from the incisors Stomach: The visualized gastric mucosa appeared normal. Biopsies were taken from the gastric body and antrum to check for H pylori. Estimated blood loss was minimal. Retroflexion performed in the stomach revealed no abnormalities in the cardia or fundus Duodenum: The mucosa appeared normal up until the 2nd portion of the duodenum The patient tolerated the procedure well and will be brought back to the recovery area to be discharged once criteria are met. The total physician intraservice time was 10 minutes. Complications There were no complications and estimated blood loss was minimal. Recommendations: Resume previous diet Continue outPx medications and anti-reflux measures Follow up pathology results Call our office ([facility]) to schedule follow-up with Dr Reddy An emergency contact number was given to the patient for any complications related to the procedure
[2020-06-05] MEDS: fentaNYL 250 MCG/5 ML INJ IV (12:39)
[2020-06-05] MEDS: MIDAZOLAM 5 MG/5 ML VIAL IV (12:39)
== END 2020-06-05 13:39 | disposition home or self-care (01) ==
PROVIDERS: Referring Provider Internal Medicine Gastroenterology; Visit Provider Internal Medicine Gastroenterology
PROC: 0DJ08ZZ Inspection of Upper Intestinal Tract, Via Natural or Artificial Opening Endoscopic (ICD-10-PCS; CPT 43235; principal; 2020-06-05 14:00)
DX: K29.50 Unspecified chronic gastritis without bleeding (principal); K21.9 Gastro-esophageal reflux disease without esophagitis; G25.81 Restless legs syndrome; G62.9 Polyneuropathy, unspecified
CPT/HCPCS: 43239; J2250; J3010